=== PATIENT | female | born 2000 | race Two or more races ===

== ENCOUNTER 2024-06-06 17:21 | Emergency (ER) | payer MEDICAID ==
[~2024-06-06] VITALS: Ht 154.9 cm; Wt 68.2 kg
[2024-06-06 17:30] VITALS: BP 136/69; PULSE 105; RESP 14; TEMP 98.3; O2SAT 98
[2024-06-06 19:53] LABS: BASOPHILS % (AUTO) 0.4 % (0.0-2.0); EOSINOPHILS % (AUTO) 0.1 % (1.0-6.0); HEMATOCRIT 41.9 % (36-46); HEMOGLOBIN 14.4 g/dL (12.0-16.0); LYMPHOCYTES # (AUTO) 1.5 K/uL (1.0-4.8); MEAN CORPUSCULAR HGB CONC 34.5 G/dL (31.0-37.0); MEAN CORPUSCULAR VOLUME 90 fL (80-100); MONOCYTES # (AUTO) 0.5 K/uL (0.1-1.0); MONOCYTES % (AUTO) 5.4 % (2.0-9.0); NEUTROPHILS # (AUTO) 6.8 K/uL (1.8-7.7); NEUTROPHILS % (AUTO) 77.1 % (40.0-70.0); PLATELET COUNT (AUTO) 281 K/uL (150-450); RED BLOOD CELL COUNT(AUTO) 4.66 MIL/uL (4.00-5.20); RED CELL DISTRIBUTION WIDTH 13.1 % (11.5-14.5); WHITE BLOOD COUNT (AUTO) 8.8 K/uL (4.5-11.0)
[2024-06-06 20:03] LABS: ANION GAP 14 mmol/L (8-16); CALCIUM, TOTAL 8.7 mg/dL (8.8-10.5); CARBON DIOXIDE 23 mmol/L (22-29); CHLORIDE 103 mmol/L (98-107); CREATININE 0.49 mg/dL (0.60-1.30); GLOMERULAR FILTR. RATE CALC > 60 mL/min (>60); GLUCOSE,RANDOM 103 mg/dL (70-110); POTASSIUM 3.1 mmol/L (3.5-5.1); SODIUM SERUM 140 mmol/L (136-145); UREA NITROGEN, BLOOD 16 mg/dL (7-18)
[2024-06-06 20:07] LABS: ALANINE AMINOTRANSFERASE 26 U/L (12-78); ALBUMIN 4.2 g/dL (3.4-5.0); ALKALINE PHOSPHATASE 69 U/L (46-116); ASPARTATE AMINOTRANSFERASE 22 U/L (15-37); BILIRUBIN,TOTAL 0.4 mg/dL (0.1-1.0); LIPASE 14 U/L (16-77); TOTAL PROTEIN, SERUM 7.9 g/dL (6.4-8.2)
[2024-06-06] MEDS ORDERED: SODIUM CHLORIDE 0.9% 100 ML ONE (20:38)
[2024-06-06] MEDS ORDERED: IOHEXOL 350 MG/ML 100 ML VIAL ONE (20:38)
[2024-06-06] MEDS: MORPHINE SULFATE 4 MG/ML SYRINGE IVP ONE (21:07)
[2024-06-06] MEDS ORDERED: ONDA-243 PO (21:48)
[2024-06-06] MEDS: POTASSIUM CHLORIDE 20 MEQ ER TABLET PO ONE (22:19)
== END 2024-06-06 22:26 | disposition home or self-care (01) ==
LOC: EMS 17:21
DX: R10.84 Generalized abdominal pain (principal); R11.2 Nausea with vomiting, unspecified
CPT/HCPCS: 99285; 74177; 96374; 71045; 80048; 80076; 83690; 84703; 85025; 86850; 86900; 86901; 36415; 93005; Q9967; J2270; J7050